=== PATIENT | male | born 1955 | race Two or more races ===

== ENCOUNTER 2019-03-13 12:28 | Inpatient (IN) | payer MEDICAID, OTHER ==
[~2019-03-13] VITALS: Ht 180.3 cm; Wt 83.0 kg
[2019-03-13] MEDS ORDERED: aspirin 325mg tablet PO ONE (13:00)
[2019-03-13 13:46] LABS: BASOPHILS % (AUTO) 0.4 % (0-1); EOSINOPHILS # (AUTO) 0.1 X10'3 (0-0.9); EOSINOPHILS % (AUTO) 0.8 % (0-6); HEMATOCRIT 46.3 % (42.0-52.0); HEMOGLOBIN 15.6 g/dl (14.0-17.9); LYMPHOCYTES # (AUTO) 1.1 X10'3 (1.1-4.8); LYMPHOCYTES % (AUTO) 13.7 % (21-51); MEAN CORPUSCULAR HGB CONC 33.6 g/dL (33.0-36.5); MEAN CORPUSCULAR VOLUME 86.4 FL (78-98); MEAN PLATELET VOLUME 7.4 FL (7.4-10.4); MONOCYTES % (AUTO) 12.5 % (2-12); NEUTROPHILS % (AUTO) 72.6 % (42-75); PLATELET COUNT 223 X10'3 (140-440); RED BLOOD COUNT 5.36 X10'6 (4.70-6.10); RED CELL DISTRIBUTION WIDTH 14.2 % (11.5-14.5); WHITE BLOOD COUNT 8.2 X10'3 (4.5-11.0)
[2019-03-13 13:54] LABS: PARTIAL THROMBOPLASTIN TIME 29 SECONDS (22-32)
[2019-03-13 13:59] LABS: ALANINE AMINOTRANSFERASE 72 U/L (12-78); ALBUMIN 3.6 G/DL (3.4-5.0); ALBUMIN/GLOBULIN RATIO 0.8 (1.1-1.5); ALKALINE PHOSPHATASE 266 IU/L (46-116); ANION GAP 8 (8-16); ASPARTATE AMINO TRANSFERASE 56 U/L (10-37); BILIRUBIN,TOTAL 0.5 MG/DL (0.1-1.0); BLOOD UREA NITROGEN 17 MG/DL (7-18); BUN/CREATININE RATIO 22.1 (5.4-32.0); CALCIUM 9.6 MG/DL (8.5-10.1); CHLORIDE 103 MMOL/L (99-107); CREATININE 0.77 MG/DL (0.60-1.10); GLUCOSE 112 MG/DL (70-104); POTASSIUM 4.7 MMOL/L (3.5-5.1); SODIUM 138 MMOL/L (135-145); TOTAL CARBON DIOXIDE 27.2 MMOL/L (24-32); TOTAL PROTEIN 8.4 G/DL (6.4-8.2); eGFR > 90 ML/MIN
[2019-03-13] MEDS ORDERED: ondansetron/PF 4mg/2ml inj IV ONE (15:25)
[2019-03-13] MEDS ORDERED: normal saline 1000ML IV soln IVB ONE (15:25)
[2019-03-13] MEDS: morphine 4 MG/ML inj SYRINge IV PRN ×3 (15:32→17:29)
--- NOTE | 2019-03-13 15:50 | NUR ---
pt went to ct
--- NOTE | 2019-03-13 16:01 | NUR ---
pt returned from ct
[2019-03-13] MEDS ORDERED: ketorolac trometh. 30mg/ml inj. IV ONE (16:05)
[2019-03-13] MEDS ORDERED: famotidine/PF 10 mg/ml inj IV ONE (16:05)
[2019-03-13 16:24] LABS: LIPASE 434 U/L (73-393)
[2019-03-13 16:48] LABS: D-DIMER 7.36 MG/L FEU (0-0.50)
[2019-03-13] MEDS ORDERED: NO HOME MEDS (17:45)
[2019-03-13] MEDS ORDERED: heparin 25,000 UNIT/250ml bag 250 ML IV SCH (18:59)
[2019-03-13] MEDS ORDERED: magnesium hydroxide 30ml (MOM) UD suspension PO PRN (19:00)
[2019-03-13] MEDS ORDERED: mag hydrox/Alum hydrox/simeth 30ml oral suspension PO PRN (19:00)
[2019-03-13] MEDS ORDERED: magnesium 2GM in 50ml NS 50 ML IV PRN (19:00)
[2019-03-13] MEDS ORDERED: magnesium 4gm in 100ml NS 100 ML IV PRN (19:00)
[2019-03-13] MEDS ORDERED: heparin 10,000 units/1 ML INJ IV PRN (19:00)
[2019-03-13] MEDS ORDERED: ondansetron/PF 4mg/2ml inj IV PRN (19:00)
[2019-03-13] MEDS ORDERED: potassium CL 10mEq/100ml bag 100 ML IV PRN ×2 (19:00)
[2019-03-13] MEDS ORDERED: acetaminophen 325mg tablet PO PRN ×2 (19:00)
[2019-03-13] MEDS ORDERED: HYDROmorphone inj. 0.5 MG/0.5 ML DISP.SYRIN IV PRN (19:00)
[2019-03-13] MEDS ORDERED: HYDROcodone/acetaminophen 5mg/325mg tablet PO PRN (19:00)
[2019-03-13] MEDS ORDERED: potassium Cl 20 mEq SR tablet PO PRN ×2 (19:00)
[2019-03-13] MEDS ORDERED: heparin 10,000 units/1 ML INJ IV ONE (19:00)
[2019-03-13] MEDS ORDERED: magnesium Cl slow-release 64mg tablet PO PRN (19:00)
--- NOTE | 2019-03-13 19:07 | NUR ---
PT VOIDING WITH NO PROBLEMS
[2019-03-13] MEDS: normal saline 1000ml 1,000 ML IV SCH (19:25)
[2019-03-13] MEDS: HYDROcodone/acetaminophen 10/325mg tab PO PRN (19:35)
[2019-03-13] MEDS ORDERED: temazepam 15mg capsule PO PRN (21:00)
[2019-03-13] MEDS: diatr meglu/diatrizoate 30ml oral sol.-(3 dose) bottle PO SCH (21:02)
--- NOTE | 2019-03-13 22:00 | NUR ---
Patient in room [facility]013. I have received report from JOHNATHAN Franklin and had the opportunity to ask questions and assume patient care.
[2019-03-13 22:05] VITALS: BP 155/96
--- NOTE | 2019-03-13 22:05 | NUR ---
Pt arrived from ER to Room 4013B via gurney. With and all known belongings with the pt and visitor. Pt VSS.
[2019-03-13] MEDS: HYDROmorphone 1 mg/ml syringe IV PRN (22:33)
[2019-03-13 23:27] LABS: BASOPHILS # (AUTO) 0.1 X10'3 (0-0.2); BASOPHILS % (AUTO) 0.7 % (0-1); EOSINOPHILS # (AUTO) 0.1 X10'3 (0-0.9); EOSINOPHILS % (AUTO) 0.6 % (0-6); HEMATOCRIT 43.7 % (42.0-52.0); HEMOGLOBIN 14.7 g/dl (14.0-17.9); LYMPHOCYTES # (AUTO) 1.8 X10'3 (1.1-4.8); LYMPHOCYTES % (AUTO) 16.8 % (21-51); MEAN CORPUSCULAR HEMOGLOBIN 29.2 PG (27.0-31.0); MEAN CORPUSCULAR HGB CONC 33.6 g/dL (33.0-36.5); MEAN CORPUSCULAR VOLUME 86.7 FL (78-98); MEAN PLATELET VOLUME 7.5 FL (7.4-10.4); MONOCYTES # (AUTO) 1.1 X10'3 (0-0.9); MONOCYTES % (AUTO) 10.2 % (2-12); NEUTROPHILS # (AUTO) 7.5 X10'3 (1.8-7.7); NEUTROPHILS % (AUTO) 71.7 % (42-75); PLATELET COUNT 201 X10'3 (140-440); RED BLOOD COUNT 5.04 X10'6 (4.70-6.10); RED CELL DISTRIBUTION WIDTH 14.1 % (11.5-14.5); WHITE BLOOD COUNT 10.4 X10'3 (4.5-11.0)
--- NOTE | 2019-03-13 23:35 | NUR ---
pt is having emesis r/t dilaudid, emesis has small blood clots and some pink tinge so call to Dr Birmingham. New order to recheck CBC.
--- NOTE | 2019-03-13 23:57 | NUR ---
recheck of CBC , H/H down from 15.6/46.3 to 14.7/43.7. MD Birmingham notified, new order to d/c Heparin drip.
--- NOTE | 2019-03-14 03:46 | NUR ---
CBC RESULTS REPORTED TO DR COVARRUBIAS, NEW ORDER TO D/C HEPARIN DRIP.
[2019-03-14 06:00] VITALS: BP 174/101
[2019-03-14] MEDS: normal saline 1000ml 1,000 ML IV SCH ×2 (06:05→14:59)
--- NOTE | 2019-03-14 06:45 | NUR ---
REPORT GIVEN TO JOHNATHAN BEE.
--- NOTE | 2019-03-14 06:47 | NUR ---
Patient in room [facility] 4013. I have received report from Angelina MANN and had the opportunity to ask questions and assume patient care.
[2019-03-14 07:10] LABS: HEMATOCRIT 43.6 % (42.0-52.0); HEMOGLOBIN 14.6 g/dl (14.0-17.9); MEAN CORPUSCULAR HEMOGLOBIN 28.6 PG (27.0-31.0); MEAN CORPUSCULAR HGB CONC 33.4 g/dL (33.0-36.5); MEAN CORPUSCULAR VOLUME 85.6 FL (78-98); MEAN PLATELET VOLUME 7.5 FL (7.4-10.4); PLATELET COUNT 197 X10'3 (140-440); RED BLOOD COUNT 5.09 X10'6 (4.70-6.10); RED CELL DISTRIBUTION WIDTH 14.1 % (11.5-14.5); WHITE BLOOD COUNT 7.1 X10'3 (4.5-11.0)
[2019-03-14 07:21] VITALS: BP 150/85
[2019-03-14 07:32] LABS: ALANINE AMINOTRANSFERASE 63 U/L (12-78); ALBUMIN 3.2 G/DL (3.4-5.0); ALBUMIN/GLOBULIN RATIO 0.7 (1.1-1.5); ALKALINE PHOSPHATASE 218 IU/L (46-116); ANION GAP 9 (8-16); ASPARTATE AMINO TRANSFERASE 51 U/L (10-37); BILIRUBIN,TOTAL 0.7 MG/DL (0.1-1.0); BLOOD UREA NITROGEN 14 MG/DL (7-18); BUN/CREATININE RATIO 16.9 (5.4-32.0); CALCIUM 8.8 MG/DL (8.5-10.1); CHLORIDE 103 MMOL/L (99-107); CREATININE 0.83 MG/DL (0.60-1.10); GLUCOSE 117 MG/DL (70-104); PHOSPHORUS 3.2 MG/DL (2.3-4.5); POTASSIUM 4.3 MMOL/L (3.5-5.1); SODIUM 139 MMOL/L (135-145); TOTAL CARBON DIOXIDE 26.8 MMOL/L (24-32); TOTAL PROTEIN 7.7 G/DL (6.4-8.2); eGFR > 90 ML/MIN
[2019-03-14] MEDS ORDERED: proCHLORperazine 10 MG/2 ml inj IV ONE (07:35)
[2019-03-14] MEDS: diatr meglu/diatrizoate 30ml oral sol.-(3 dose) bottle PO SCH ×2 (08:04→10:39)
[2019-03-14] MEDS: HYDROmorphone 1 mg/ml syringe IV PRN (08:04)
[2019-03-14] MEDS: K and/or MAG REPLACEMENT MC SCH (08:11)
[2019-03-14 10:00] VITALS: BP 128/75
[2019-03-14] MEDS ORDERED: pneumococcal 23-VAL P-sac vacc 25 mcg/0.5ml vial IMVAC ONE (10:00)
[2019-03-14] MEDS ORDERED: iohexol 350MG/ML 100ml bottle IV ONE (10:27)
[2019-03-14] MEDS ORDERED: morphine 2 MG/ML inj. syringe IV PRN ×2 (11:10)
[2019-03-14 15:44] VITALS: BP 126/72
[2019-03-14] MEDS: lisinopril 20mg tablet PO SCH (15:44)
[2019-03-14] MEDS: HYDROcodone/acetaminophen 10/325mg tab PO PRN (16:35)
[2019-03-14 18:00] VITALS: BP 134/73
--- NOTE | 2019-03-14 18:43 | NUR ---
Patient in room [facility] 4013. I have received report from JOHNATHAN Echeverria and had the opportunity to ask questions and assume patient care.
[2019-03-14 22:00] VITALS: BP 129/77
[2019-03-15] VITALS (11 sets, daily range): BP systolic 148–174; BP diastolic 79–101
[2019-03-15] MEDS: normal saline 1000ml 1,000 ML IV SCH ×2 (04:47→23:05)
[2019-03-15 05:47] LABS: HEMATOCRIT 43.6 % (42.0-52.0); HEMOGLOBIN 14.4 g/dl (14.0-17.9); MEAN CORPUSCULAR HEMOGLOBIN 28.5 PG (27.0-31.0); MEAN CORPUSCULAR HGB CONC 32.9 g/dL (33.0-36.5); MEAN CORPUSCULAR VOLUME 86.6 FL (78-98); MEAN PLATELET VOLUME 7.3 FL (7.4-10.4); PLATELET COUNT 194 X10'3 (140-440); RED BLOOD COUNT 5.03 X10'6 (4.70-6.10); RED CELL DISTRIBUTION WIDTH 14.3 % (11.5-14.5); WHITE BLOOD COUNT 7.5 X10'3 (4.5-11.0)
[2019-03-15 05:56] LABS: PARTIAL THROMBOPLASTIN TIME 28 SECONDS (22-32)
[2019-03-15 06:01] LABS: ALANINE AMINOTRANSFERASE 56 U/L (12-78); ALBUMIN 2.8 G/DL (3.4-5.0); ALBUMIN/GLOBULIN RATIO 0.7 (1.1-1.5); ALKALINE PHOSPHATASE 222 IU/L (46-116); ANION GAP 5 (8-16); ASPARTATE AMINO TRANSFERASE 54 U/L (10-37); BILIRUBIN,TOTAL 0.6 MG/DL (0.1-1.0); BLOOD UREA NITROGEN 12 MG/DL (7-18); BUN/CREATININE RATIO 16.7 (5.4-32.0); CALCIUM 8.6 MG/DL (8.5-10.1); CHLORIDE 108 MMOL/L (99-107); CREATININE 0.72 MG/DL (0.60-1.10); GLUCOSE 99 MG/DL (70-104); PHOSPHORUS 2.6 MG/DL (2.3-4.5); POTASSIUM 4.5 MMOL/L (3.5-5.1); SODIUM 143 MMOL/L (135-145); TOTAL CARBON DIOXIDE 30.2 MMOL/L (24-32); eGFR > 90 ML/MIN
--- NOTE | 2019-03-15 06:35 | NUR ---
Problems reprioritized. Patient report given, questions answered & plan of care reviewed with JOHNATHAN Cuba.
[2019-03-15] MEDS: K and/or MAG REPLACEMENT MC SCH (07:16)
[2019-03-15] MEDS: lisinopril 20mg tablet PO SCH (08:36)
[2019-03-15] MEDS ORDERED: iohexol 350MG/ML 100ml bottle IV ONE (10:29)
[2019-03-15] MEDS ORDERED: fentaNYL/PF 50MCG/1 ML 2ML syringe IV PRN (12:40)
[2019-03-15] MEDS ORDERED: midazolam 2 mg/2 ml injection ONE (12:40)
[2019-03-15] MEDS ORDERED: midazolam 2 mg/2 ml injection IV PRN (12:40)
[2019-03-15] MEDS ORDERED: fentaNYL/PF 50MCG/1 ML 2ML syringe ONE (12:40)
[2019-03-15 13:10] LABS: HBSAG SCREEN Negative (Negative); HEP A AB, IGM Negative (Negative); HEP B CORE AB, IGM Negative (Negative); HEPATITIS C ANTIBODY <0.1 s/co ratio (0.0-0.9)
[2019-03-15] MEDS: HYDROcodone/acetaminophen 10/325mg tab PO PRN ×2 (15:20→20:58)
--- NOTE | 2019-03-15 18:24 | NUR ---
Problems reprioritized. Patient report given, questions answered & plan of care reviewed with JOHNATHAN Morales.
--- NOTE | 2019-03-15 18:28 | NUR ---
Patient in room [facility] 4013. I have received report from JOHNATHAN Cuba and had the opportunity to ask questions and assume patient care.
[2019-03-16 05:28] LABS: HEMATOCRIT 43.1 % (42.0-52.0); HEMOGLOBIN 14.2 g/dl (14.0-17.9); MEAN CORPUSCULAR HEMOGLOBIN 28.2 PG (27.0-31.0); MEAN CORPUSCULAR VOLUME 85.2 FL (78-98); MEAN PLATELET VOLUME 6.9 FL (7.4-10.4); PLATELET COUNT 178 X10'3 (140-440); RED BLOOD COUNT 5.06 X10'6 (4.70-6.10); RED CELL DISTRIBUTION WIDTH 14.3 % (11.5-14.5); WHITE BLOOD COUNT 7.2 X10'3 (4.5-11.0)
[2019-03-16 05:50] LABS: ALANINE AMINOTRANSFERASE 63 U/L (12-78); ALBUMIN 2.7 G/DL (3.4-5.0); ALBUMIN/GLOBULIN RATIO 0.7 (1.1-1.5); ALKALINE PHOSPHATASE 245 IU/L (46-116); ANION GAP 10 (8-16); ASPARTATE AMINO TRANSFERASE 65 U/L (10-37); BILIRUBIN,TOTAL 0.8 MG/DL (0.1-1.0); BLOOD UREA NITROGEN 13 MG/DL (7-18); BUN/CREATININE RATIO 18.1 (5.4-32.0); CALCIUM 8.4 MG/DL (8.5-10.1); CHLORIDE 105 MMOL/L (99-107); CREATININE 0.72 MG/DL (0.60-1.10); GLUCOSE 106 MG/DL (70-104); MAGNESIUM 1.9 MG/DL (1.5-2.4); POTASSIUM 3.7 MMOL/L (3.5-5.1); SODIUM 140 MMOL/L (135-145); TOTAL CARBON DIOXIDE 25.3 MMOL/L (24-32); TOTAL PROTEIN 6.7 G/DL (6.4-8.2); eGFR > 90 ML/MIN
[2019-03-16] MEDS: HYDROcodone/acetaminophen 10/325mg tab PO PRN (05:54)
[2019-03-16 06:00] VITALS: BP 143/97
--- NOTE | 2019-03-16 06:00 | NUR ---
Patient in room [facility] 4013. I have received report from Carmen MANN and had the opportunity to ask questions and assume patient care.
[2019-03-16 06:22] LABS: PARTIAL THROMBOPLASTIN TIME 29 SECONDS (22-32)
--- NOTE | 2019-03-16 06:34 | NUR ---
Problems reprioritized. Patient report given, questions answered & plan of care reviewed with JOHNATHAN Hawthorne.
[2019-03-16] MEDS: K and/or MAG REPLACEMENT MC SCH (07:59)
[2019-03-16] MEDS: lisinopril 20mg tablet PO SCH (08:01)
[2019-03-16 08:10] LABS: AFP,SERUM, TUMOR MARKER 4.3 ng/mL (0.0-8.3); CARCINOEMBRYONIC ANTIGEN 55.5 ng/mL (0.0-4.7)
[2019-03-16 10:00] VITALS: BP 156/99
[2019-03-16] MEDS ORDERED: HYDR-3972 PO (10:30)
[2019-03-16] MEDS ORDERED: LISI40TA4 PO (10:30)
--- NOTE | 2019-03-16 12:25 | NUR ---
Patient stable for discharge home today with family. All DC instructions given to patient and family. Patient is to follow up with biopsy results.
[2019-03-16 13:10] LABS: CARBOHYDRATE ANTIGEN 19-9 33100 U/mL (0-35)
== END 2019-03-16 12:16 | disposition home or self-care (01) | DRG 441 ==
LOC: ER 12:29 → ORTHO 4S 21:38 → CMPBEDREQ 21:42
PROVIDERS: ADMIT Family Medicine; ATTEND Family Medicine
PROC: 3E0234Z Introduction of Serum, Toxoid and Vaccine into Muscle, Percutaneous Approach (ICD-10-PCS; principal; 2019-03-14)
PROC: 0FB13ZX Excision of Right Lobe Liver, Percutaneous Approach, Diagnostic (ICD-10-PCS; 2019-03-15)
DX: R16.0 Hepatomegaly, not elsewhere classified (principal); K85.90 Acute pancreatitis without necrosis or infection, unspecified; K21.9 Gastro-esophageal reflux disease without esophagitis; K57.30 Diverticulosis of large intestine without perforation or abscess without bleeding; K74.69 Other cirrhosis of liver; Z80.0 Family history of malignant neoplasm of digestive organs; Z82.49 Family history of ischemic heart disease and other diseases of the circulatory system; Z23 Encounter for immunization; Z88.8 Allergy status to other drugs, medicaments and biological substances; Z86.010 Personal history of colon polyps; Z84.1 Family history of disorders of kidney and ureter
CPT/HCPCS: 36415; 47000; 71045; 71275; 74174; 74176; 74177; 76942; 80053; 80074; 82103; 82378; 83690; 83735; 84100; 84443; 84484; 85025; 85027; 85379; 85610; 85730; 86301; 86304; 87081; 90732; 93005; 93970; 96361; 96374; 96375; 99152; 99153; 99285; G0378; J0780; J1170; J1644; J1885; J2250; J2270; J2405; J3010; J3490; J7030; Q9963; Q9967

== ENCOUNTER 2019-03-17 15:06 | Inpatient (IN) | payer MEDICAID, OTHER ==
[~2019-03-17] VITALS: Ht 180.3 cm; Wt 82.9 kg
[~2019-03-17 15:06] MED LIST: HYDR-3972 PO; LISI40TA4 PO
[2019-03-17] MEDS ORDERED: ondansetron/PF 4mg/2ml inj IV PRN (16:40)
[2019-03-17] MEDS ORDERED: magnesium hydroxide 30ml (MOM) UD suspension PO PRN (16:40)
[2019-03-17] MEDS ORDERED: mag hydrox/Alum hydrox/simeth 30ml oral suspension PO PRN (16:40)
[2019-03-17] MEDS ORDERED: acetaminophen 325mg tablet PO PRN ×2 (16:40)
[2019-03-17] MEDS ORDERED: PEG 3350/Na sulf,bicarb,Cl/KCl oral sol 4 liter bottle PO ONE (16:40)
[2019-03-17 17:26] LABS: BASOPHILS # (AUTO) 0.1 X10'3 (0-0.2); BASOPHILS % (AUTO) 0.7 % (0-1); EOSINOPHILS # (AUTO) 0.1 X10'3 (0-0.9); EOSINOPHILS % (AUTO) 1.1 % (0-6); HEMOGLOBIN 14.7 g/dl (14.0-17.9); LYMPHOCYTES # (AUTO) 1.1 X10'3 (1.1-4.8); LYMPHOCYTES % (AUTO) 12.5 % (21-51); MEAN CORPUSCULAR HEMOGLOBIN 28.3 PG (27.0-31.0); MEAN CORPUSCULAR HGB CONC 33.4 g/dL (33.0-36.5); MEAN CORPUSCULAR VOLUME 84.8 FL (78-98); MEAN PLATELET VOLUME 6.8 FL (7.4-10.4); MONOCYTES % (AUTO) 11.2 % (2-12); NEUTROPHILS # (AUTO) 6.3 X10'3 (1.8-7.7); NEUTROPHILS % (AUTO) 74.5 % (42-75); PLATELET COUNT 209 X10'3 (140-440); RED BLOOD COUNT 5.19 X10'6 (4.70-6.10); RED CELL DISTRIBUTION WIDTH 14.1 % (11.5-14.5); WHITE BLOOD COUNT 8.5 X10'3 (4.5-11.0)
[2019-03-17 17:40] LABS: ALANINE AMINOTRANSFERASE 70 U/L (12-78); ALBUMIN 3.3 G/DL (3.4-5.0); ALBUMIN/GLOBULIN RATIO 0.7 (1.1-1.5); ALKALINE PHOSPHATASE 272 IU/L (46-116); ANION GAP 6 (8-16); ASPARTATE AMINO TRANSFERASE 66 U/L (10-37); BILIRUBIN,TOTAL 0.7 MG/DL (0.1-1.0); BLOOD UREA NITROGEN 10 MG/DL (7-18); BUN/CREATININE RATIO 11.9 (5.4-32.0); CALCIUM 9.1 MG/DL (8.5-10.1); CHLORIDE 103 MMOL/L (99-107); CREATININE 0.84 MG/DL (0.60-1.10); GLUCOSE 135 MG/DL (70-104); MAGNESIUM 2.3 MG/DL (1.5-2.4); PARTIAL THROMBOPLASTIN TIME 28 SECONDS (22-32); SODIUM 140 MMOL/L (135-145); TOTAL CARBON DIOXIDE 30.8 MMOL/L (24-32); TOTAL PROTEIN 7.9 G/DL (6.4-8.2); eGFR > 90 ML/MIN
[2019-03-17] MEDS: amLODIPine 5mg tablet PO SCH (18:15)
[2019-03-17] MEDS: HYDROcodone/acetaminophen 5mg/325mg tablet PO PRN (18:40)
[2019-03-17] MEDS ORDERED: lisinopril 10 MG tablet PO ONE (19:55)
--- NOTE | 2019-03-17 19:56 | NUR ---
TELEPHONE CALL TO DR LOTT AT THIS TIME REGARDING BP 176/91, ORDERS RECEIVED.
[2019-03-17] MEDS ORDERED: temazepam 15mg capsule PO PRN (21:00)
[2019-03-17 21:45] VITALS: BP 185/101
[2019-03-17 22:50] VITALS: BP 182/105
[2019-03-17] MEDS: hydrALAZINE 20mg/ml inj. IV PRN (23:01)
[2019-03-18] VITALS (14 sets, daily range): BP systolic 121–165; BP diastolic 68–107
[2019-03-18] MEDS: HYDROcodone/acetaminophen 5mg/325mg tablet PO PRN ×3 (01:13→21:52)
--- NOTE | 2019-03-18 06:33 | NUR ---
Patient in room [facility]. I have received report from Vivian MANN and had the opportunity to ask questions and assume patient care.
--- NOTE | 2019-03-18 07:02 | NUR ---
Problems reprioritized. Patient report given, questions answered & plan of care reviewed with Julia MANN.
[2019-03-18] MEDS: lisinopril 20mg tablet PO SCH (07:40)
[2019-03-18] MEDS: amLODIPine 5mg tablet PO SCH (07:40)
[2019-03-18] MEDS ORDERED: non-formulary drug (Lisinopril* 1 TAB) PO SCH (08:00)
--- NOTE | 2019-03-18 08:41 | NUR ---
Patient on golytely Addendum: 03/18/19 at 0842 by Julia Salinas RN Amended: Links added.
--- NOTE | 2019-03-18 11:46 | NUR ---
Patient off the unit to GI for colonoscopy.
[2019-03-18] MEDS ORDERED: fentaNYL/PF 50MCG/1 ML 2ML syringe ONE (11:49)
[2019-03-18] MEDS ORDERED: MIDAZolam 5mg/5ml vial ONE (11:49)
[2019-03-18] MEDS ORDERED: LIDOcaine Viscous 15ml cup ONE (11:49)
--- NOTE | 2019-03-18 17:15 | NUR ---
Notified Dr. Rhoades of patients BP of 178/131. Many family members in the room crying and upset over diagnosis of Stage 4 CA.
[2019-03-18] MEDS ORDERED: LORazepam 0.5 MG tablet PO PRN (17:20)
[2019-03-18] MEDS: hydrALAZINE 20mg/ml inj. IV PRN (17:25)
--- NOTE | 2019-03-18 17:55 | NUR ---
order received to give 0.5mg Ativan PO for patients HTN. Hydralazine given PRN.
--- NOTE | 2019-03-18 18:05 | NUR ---
Problems reprioritized. Patient report given, questions answered & plan of care reviewed with [].
--- NOTE | 2019-03-18 18:14 | NUR ---
Patient in room [facility]. I have received report from Julia MANN and had the opportunity to ask questions and assume patient care.
[2019-03-19] VITALS: BP 140/80
[2019-03-19] MEDS: HYDROcodone/acetaminophen 10/325mg tab PO PRN ×2 (03:06→15:08)
--- NOTE | 2019-03-19 06:06 | NUR ---
Patient in room [facility]. I have received report from Michelle MANN and had the opportunity to ask questions and assume patient care.
--- NOTE | 2019-03-19 06:23 | NUR ---
Problems reprioritized. Patient report given, questions answered & plan of care reviewed with Julia MANN .
[2019-03-19] MEDS: lisinopril 20mg tablet PO SCH (07:38)
[2019-03-19] MEDS: amLODIPine 5mg tablet PO SCH (07:40)
[2019-03-19 08:00] VITALS: BP 145/82
[2019-03-19 12:17] VITALS: BP 134/92
--- NOTE | 2019-03-19 14:47 | NUR ---
Waiting for MD to complete discharge at this time. Unable to work further on discharge currently.
[2019-03-19] MEDS ORDERED: NOR5T PO (15:10)
[2019-03-19] MEDS ORDERED: ATI0.5T PO (15:10)
--- NOTE | 2019-03-19 16:15 | NUR ---
Patient discharged on nursing end. All education completed with family at bedside. Medications are being delivered currently by Daphne.
--- NOTE | 2019-03-19 16:32 | NUR ---
Patient discharged with family. VSS. All doses for medication reviewed with patient and family, understanding verbalized. Patient refereed to [facility], appointment being set up by MARITO.
== END 2019-03-19 16:27 | disposition home or self-care (01) | DRG 392 ==
LOC: ER 15:07 → SUR 3N 21:30
PROVIDERS: ADMIT Family Medicine; ATTEND Family Medicine
PROC: 0DB48ZX Excision of Esophagogastric Junction, Via Natural or Artificial Opening Endoscopic, Diagnostic (ICD-10-PCS; principal; 2019-03-18)
PROC: 0DJD8ZZ Inspection of Lower Intestinal Tract, Via Natural or Artificial Opening Endoscopic (ICD-10-PCS; 2019-03-18)
DX: K22.8 Other specified diseases of esophagus (principal); C78.7 Secondary malignant neoplasm of liver and intrahepatic bile duct; F41.9 Anxiety disorder, unspecified; I10 Essential (primary) hypertension; K57.30 Diverticulosis of large intestine without perforation or abscess without bleeding; K21.9 Gastro-esophageal reflux disease without esophagitis; Z88.8 Allergy status to other drugs, medicaments and biological substances; Z79.899 Other long term (current) drug therapy
CPT/HCPCS: 36415; 43239; 45378; 80053; 83735; 85025; 85610; 85730; 96374; 99153; 99285; A4620; G0378; J0360; J2250; J2405; J3010

== ENCOUNTER 2019-04-06 06:33 | Day surgery (SDC) | payer MEDICAID ==
[~2019-04-06] VITALS: Ht 180.3 cm; Wt 75.0 kg
[~2019-04-06 06:33] MED LIST changes: +ATI0.5T PO; +NOR5T PO
[2019-04-06] MEDS ORDERED: normal saline 1000ml 1,000 ML IV SCH (06:50)
[2019-04-06 07:00] VITALS: BP 143/96
[2019-04-06] MEDS ORDERED: IBUP-1986 PO (07:28)
[2019-04-06] MEDS ORDERED: MORP-92 PO (07:28)
[2019-04-06] MEDS ORDERED: HYDR-4353 PO (07:55)
[2019-04-06] MEDS ORDERED: heparin sodium, porcine/PF 100unit/ml 5ML syringe ICATH ONE (08:30)
[2019-04-06] MEDS ORDERED: LIDOcaine 1%/PF 5ML 10 MG/ML VIAL SQ ONE (08:30)
[2019-04-06] MEDS ORDERED: fentaNYL/PF 50MCG/1 ML 2ML syringe IV PRN (08:30)
[2019-04-06] MEDS ORDERED: midazolam 2 mg/2 ml injection IV PRN (08:30)
[2019-04-06] MEDS ORDERED: heparin sodium, porcine/PF 100unit/ml 5ML syringe ONE (08:33)
[2019-04-06] MEDS ORDERED: midazolam 2 mg/2 ml injection ONE (08:33)
[2019-04-06] MEDS ORDERED: LIDOcaine 1%/PF 5ML 10 MG/ML VIAL ONE (08:33)
[2019-04-06] MEDS ORDERED: fentaNYL/PF 50MCG/1 ML 2ML syringe ONE (08:34)
[2019-04-06 09:22] VITALS: BP 144/96
[2019-04-06 09:30] VITALS: BP 135/84
[2019-04-06 09:45] VITALS: BP 128/91
[2019-04-06 10:00] VITALS: BP 128/81
[2019-04-06 10:15] VITALS: BP 135/85
== END 2019-04-06 10:30 | disposition home or self-care (01) ==
LOC: SSTAY O 06:33
PROVIDERS: ATTEND Radiology Vascular & Interventional Radiology
DX: C15.5 Malignant neoplasm of lower third of esophagus (principal); I10 Essential (primary) hypertension; F17.290 Nicotine dependence, other tobacco product, uncomplicated; Z79.899 Other long term (current) drug therapy; Z98.890 Other specified postprocedural states; Z80.0 Family history of malignant neoplasm of digestive organs; Z80.8 Family history of malignant neoplasm of other organs or systems
CPT/HCPCS: 36561; 76937; 77001; 99152; 99153; C1788; C1894; J1642; J2250; J3010; A6213; J7030